=== PATIENT | female | born 1985 | race African-American/Black ===

== ENCOUNTER 2016-11-06 19:28 | Emergency (ER) | payer MEDICAID, OTHER ==
[~2016-11-06] VITALS: Ht 175.3 cm; Wt 99.0 kg
[~2016-11-06 19:28] MED LIST: CEPH500 PO; CLIN150 PO
[2016-11-06 19:30] VITALS: BP 173/79; PULSE 100; RESP 18; TEMP 97.9; O2SAT 97
--- NOTE | 2016-11-06 21:55 | PD ---
HPI Chief Complaint congestion Date Seen: Nov 06, 2016 Time Seen: 21:00 Travel History International Travel<30 Days: No Contact w/Intl Traveler<30Days: No Known Affected Area: No History of Present Illness HPI 31 y/o at 27 weeks who c/o congestion and KUMARI for 2 weeks which felt worse tonight. She has not improved with tylenol cold. Para: 2 : 3 History Past Medical History Medical History: Denies Significant Hx Obstetric History Obstetric History 2 prior cs 31 week twins G1 Past Surgical History Narrative Surgical 2 cs Family History Family History: Negative Social History Alcohol Use: No Tobacco Use: No Substance Abuse: No Allergies-Medications (Allergen,Severity, Reaction): Coded Allergies: No Known Allergies (Verified , 03/14/16) Home Meds Active Scripts Cephalexin Monohydrate (Keflex 500 mg Cap)500 Mg [id number] Mg PO QID #40 CAP Prov:Yehuda Elliott DO 03/14/16 Clindamycin Hcl (Cleocin)150 Mg Cap2 Tab PO QID #80 CAP Prov:Yehuda Elliott DO 03/14/16 Review of Systems Except as stated in HPI: all other systems reviewed are Neg Physical Exam Narrative GENERAL: Well-nourished, well-developed patient. SKIN: Warm and dry. HEAD: Normocephalic and atraumatic. EYES: No scleral icterus. No injection or drainage. ENT: No nasal drainage noted. Mucous membranes pink. Airway patent. NECK: Supple, trachea midline. No JVD. CARDIOVASCULAR: Regular rate and rhythm without murmurs, gallops, or rubs. RESPIRATORY: Breath sounds equal bilaterally. No accessory muscle use. ABDOMEN/GI: Abdomen soft, non-tender, bowel sounds present, no rebound, no guarding Gravid to [-] weeks size Fundal Height: [-] FHT's: Category: [-1] Baseline: [-] Reactive: [-] Variability: [-] Decels: [-] EXTREMITIES: No cyanosis or edema. BACK: Nontender without obvious deformity. No CVA tenderness. NEUROLOGICAL: Awake and alert. Motor and sensory grossly within normal limits. Five out of 5 muscle strength in all muscle groups. Normal speech. Data Data Vital Signs Reviewed: Yes MDM Medical Record Reviewed: Yes Narrative Course / MDM A:URI at 27 weeks P:Continue symptomatic treatments. Diagnosis Diagnosis: Primary Impression: 27 weeks gestation of Additional Impression: URI (upper respiratory infection) Disposition: 01 DISCHARGE HOME Condition: Good Segundo Ashley MD Nov 06, 2016 21:55
== END 2016-11-06 22:59 | disposition home or self-care (01) ==
LOC: HOBED 19:28
DX: O99.512 Diseases of the respiratory system complicating pregnancy, second trimester (principal); J06.9 Acute upper respiratory infection, unspecified; Z3A.27 27 weeks gestation of pregnancy
CPT/HCPCS: 87804; 99284

== ENCOUNTER 2017-01-27 16:04 | Inpatient (IN) | payer MEDICAID ==
[~2017-01-27] VITALS: Ht 175.3 cm; Wt 149.2 kg
[2017-01-30] VITALS (20 sets, daily range): BP systolic 112–166; BP diastolic 55–73; PULSE 66–102; RESP 18–20; TEMP 97.6–98.9; O2SAT 96–99
[2017-01-30] MEDS ORDERED: CALNTAB (05:41)
[2017-01-30 06:02] LABS: AUTOMATED NEUTROPHIL # 11.3 TH/MM3 (1.8-7.7); BASOPHIL # 0.1 TH/MM3 (0-0.2); BASOPHIL % 0.4 % (0.0-2.0); EOSINOPHIL # 0.1 TH/MM3 (0-0.4); EOSINOPHIL % 0.9 % (0.0-4.0); HEMATOCRIT 35.1 % (35.0-46.0); HEMO FLAGS DIFF FINAL; LYMPH % 19.7 % (9.0-44.0); LYMPHOCYTE # 3.1 TH/MM3 (1.0-4.8); MEAN CELL VOLUME 76.7 FL (80.0-100.0); MEAN CORPUSCULAR HEMOGLOBIN 25.3 PG (27.0-34.0); MONO % 6.5 % (0.0-8.0); NEUT % 72.5 % (16.0-70.0); PLATELET COUNT 255 TH/MM3 (150-450); RED BLOOD COUNT 4.58 MIL/MM3 (4.00-5.30); RED CELL DISTRIBUTION WIDTH 14.6 % (11.6-17.2); WHITE BLOOD COUNT 15.5 TH/MM3 (4.0-11.0)
[2017-01-30] MEDS ORDERED: ceFAZolin 2 GM PREMIX 50 ML IV SCH (06:15)
[2017-01-30] MEDS ORDERED: CITRIC ACID-SODIUM CITRATE LIQ 30 ML UDC PO SCH (06:15)
[2017-01-30] MEDS ORDERED: LACTATED RINGER'S 1000 ML IV ONE (06:15)
[2017-01-30] MEDS ORDERED: LACTATED RINGER'S 1000 ML IV SCH (06:15)
[2017-01-30 06:16] LABS: BACTERIA, URINE RARE /hpf; BLOOD, URINE NEG (NEG); GLUCOSE,URINE NEG (NEG); KETONE, URINE TRACE mg/dL (NEG); MUCUS URINE FEW /lpf (OCC); NITRITE,URINE NEG (NEG); RENAL EPITHELIAL CELLS <1 /hpf; SQUAMOUS EPITHELIAL CELL URINE 9 /hpf (0-5); TRANSITIONAL EPI CELLS, URINE <1 /hpf; URINE COLOR YELLOW (YELLW/STRAW)
[2017-01-30 06:19] LABS: COMMENT (UR) CULTURE INDICATED; CULTURE IF INDICATED CULTURE INDICATED
[2017-01-30] MEDS ORDERED: APREPITANT 40 MG CAP ONE (06:50)
[2017-01-30] MEDS ORDERED: OXYTOCIN 10 UNIT/ML AMP ONE ×2 (06:55→07:04)
--- NOTE | 2017-01-30 07:31 | HHI.HP ---
HPI Chief Complaint here for repeat CS at 39 weeks Date Seen: January 30, 2017 Time Seen: 07:10 Travel History International Travel<30 Days: No Contact w/Intl Traveler<30Days: No Known Affected Area: No History of Present Illness HPI 31 for 3rd repeat CS. All questions answered and good PNC Para: 3 : 4 History Past Medical History Medical History: Denies Significant Hx Obstetric History Obstetric History x1 and CS X2 Past Surgical History Narrative Surgical as above Family History Family History: Negative Social History Alcohol Use: No Tobacco Use: No Substance Abuse: No Allergies-Medications (Allergen,Severity, Reaction): Coded Allergies: No Known Allergies (Verified , 01/30/17) Home Meds Reported Medications Vitamin (Calna)1 Tab Tab 01/30/17 Discontinued Scripts Cephalexin Monohydrate (Keflex 500 mg Cap)500 Mg [id number] Mg PO QID #40 CAP Prov:Yehuda Elliott DO 03/14/16 Clindamycin Hcl (Cleocin)150 Mg Cap2 Tab PO QID #80 CAP Prov:Yehuda Elliott DO 03/14/16 Review of Systems Except as stated in HPI: all other systems reviewed are Neg Physical Exam Vital Signs Date Time Temp Pulse Resp B/P Pulse Ox O2 Delivery O2 Flow Rate FiO2 01/30/17 05:56 94 01/30/17 05:56 98.1 01/30/17 05:56 20 01/30/17 05:56 136/73 01/30/17 05:55 102 01/30/17 05:50 94 01/30/17 05:45 97 Narrative GENERAL: Well-nourished, well-developed patient. SKIN: Warm and dry. HEAD: Normocephalic and atraumatic. EYES: No scleral icterus. No injection or drainage. ENT: No nasal drainage noted. Mucous membranes pink. Airway patent. NECK: Supple, trachea midline. No JVD. CARDIOVASCULAR: Regular rate and rhythm without murmurs, gallops, or rubs. RESPIRATORY: Breath sounds equal bilaterally. No accessory muscle use. BREASTS: Bilateral exam showed no masses , no retractions, no nipple discharge. ABDOMEN/GI: Abdomen soft, non-tender, bowel sounds present, no rebound, no guarding Gravid to [-] weeks size Fundal Height: [-] GENITOURINARY: External Genitalia: intact and normal in appearance BUS glands: [-] Cervix: [-] Dilatation: [-] Effacement: [-] Station: [-] Presentation: [-] Membranes: [intact or ruptured] Uterine Contractions: [-] FHT's: Category: [-] Baseline: [-] Reactive: [-] Variability: [-] Decels: [-] EXTREMITIES: No cyanosis or edema. BACK: Nontender without obvious deformity. No CVA tenderness. NEUROLOGICAL: Awake and alert. Motor and sensory grossly within normal limits. Five out of 5 muscle strength in all muscle groups. Normal speech. Data Data Vital Signs Reviewed: Yes Orders Admit To Inpatient (01/30/17 ) Vital Signs (Adult) .ON ADMISSION (01/30/17 05:48) Activity Oob Ad Antonieta (01/30/17 05:48) Heart (01/30/17 05:48) Urinary Catheter Management TERRI.Q8H (01/30/17 05:48) ^ Preps (01/30/17 05:48) Scd / Anival / Foot Pump TERRI.QSHIFT (01/30/17 05:48) ^ Ultrasound For Locatio (01/30/17 05:48) Diet Npo (01/30/17 Breakfast) Type And Screen (01/30/17 05:48) Complete Blood Count With Diff (01/30/17 05:48) Urinalysis - C+S If Indicated (01/30/17 05:48) Specimen To Be Collected PRN (01/30/17 05:48) Lactated Ringer's 1000 Ml Inj (Lr 1000 M (01/30/17 06:15) Lactated Ringer's 1000 Ml Inj (Lr 1000 M (01/30/17 06:15) Citric Acid-Sodium Citrate Liq (Bicitra (01/30/17 06:15) Cefazolin 2 Gm Premix (Ancef 2 Gm Premix (01/30/17 06:15) Urine Culture (01/30/17 05:30) Aprepitant (Emend) (01/30/17 06:50) Oxytocin Inj (Pitocin Inj) (01/30/17 06:55) Oxytocin Inj (Pitocin Inj) (01/30/17 07:04) Labs Laboratory Tests Test 01/30/17 05:30 White Blood Count 15.5 Red Blood Count 4.58 Hemoglobin 11.6 Hematocrit 35.1 Mean Corpuscular Volume 76.7 Mean Corpuscular Hemoglobin 25.3 Mean Corpuscular Hemoglobin 33.0 Concent Red Cell Distribution Width 14.6 Platelet Count 255 Mean Platelet Volume 7.5 Neutrophils (%) (Auto) 72.5 Lymphocytes (%) (Auto) 19.7 Monocytes (%) (Auto) 6.5 Eosinophils (%) (Auto) 0.9 Basophils (%) (Auto) 0.4 Neutrophils # (Auto) 11.3 Lymphocytes # (Auto) 3.1 Monocytes # (Auto) 1.0 Eosinophils # (Auto) 0.1 Basophils # (Auto) 0.1 CBC Comment DIFF FINAL Differential Comment Urine Color YELLOW Urine Turbidity HAZY Urine pH 6.0 Urine Specific [place] 1.022 Urine Protein TRACE Urine Glucose (UA) NEG Urine Ketones TRACE Urine Occult Blood NEG Urine Nitrite NEG Urine Bilirubin NEG Urine Urobilinogen LESS THAN 2.0 Urine Leukocyte Esterase LARGE Urine RBC 8 Urine WBC 25 Urine Squamous Epithelial 9 Cells Urine Transitional Epithelial <1 Cells Urine Renal Epithelial Cells <1 Urine Bacteria RARE Urine Mucus FEW Microscopic Urinalysis Comment CULTURE INDICATED Blood Type B POSITIVE Antibody Screen NEGATIVE Date/Time Procedure Status Source Growth 01/30/17 05:30 Urine Culture Received Urine Clean Catch Pending Assessment/Plan Problem List: (1) 39 weeks gestation of Assessment and Plan For CS Preston Ojeda MD January 30, 2017 07:31
--- NOTE | 2017-01-30 08:25 | PD.OB.DELI ---
Procedure Note Section Procedure Pre Op Diagnosis: (1) 39 weeks gestation of (2) Delivered by section Post Op Diagnosis: (1) 39 weeks gestation of (2) Delivered by section Performed by Preston Ojeda Procedure: Repeat Low Transverse Sec Indication for delivery: Desired elective repeat Informed consent obtained: For anesthesia, For procedure Confirmed correct: Patient, Procedure, Time-out taken Anesthesia: Spinal Medication prior to procedure: As documented in eMAR Monitoring during procedure: Blood pressure monitoring Urinary catheter: Inserted using sterile technique, To dependent drainage Sterile preparation: Duraprep Position: Supine with wedge to left side Operative Features Skin Incision: Pfannenstiel Uterine Incision: Low transverse w/knife / blunt ext Membranes Ruptured: Artificially Presentation: Occiput anterior Delivery of infant: Uneventful : Male, Single One Minute : 8 Five Minute : 9 Weight: 5# 12 oz Status of infant: Viable Placenta delivered: Intact Medications: Antibiotics Estimated blood loss: 500 Procedure tolerated: Well Maternal Condition: Stable Condition: Stable Preston Ojeda MD January 30, 2017 08:24
[2017-01-30] MEDS ORDERED: oxyCODONE/ACETAMINOPHEN 5 MG/325 MG TAB PO PRN (08:30)
[2017-01-30] MEDS ORDERED: SIMETHICONE 80 MG CHEWABLE TAB PO PRN (08:30)
[2017-01-30] MEDS ORDERED: KETOROLAC TROMETHAMINE 60 MG/2 ML (IM) VIAL IM PRN (08:30)
[2017-01-30] MEDS ORDERED: MORPHINE SULFATE PF 5 MG/10 ML VIAL ONE (08:30)
[2017-01-30] MEDS ORDERED: SODIUM CHLORIDE 0.9% FLUSH 10 ML FLUSH IV FLUSH PRN (08:30)
[2017-01-30] MEDS ORDERED: OXYTOCIN 30 UNITS-500ML PREMIX 500 ML IV ONE (08:30)
[2017-01-30] MEDS: SODIUM CHLORIDE 0.9% FLUSH 10 ML FLUSH IV FLUSH SCH (09:00)
[2017-01-30] MEDS ORDERED: ONDANSETRON HCL 4 MG/2 ML VIAL IV PUSH ONE (09:02)
[2017-01-30] MEDS ORDERED: MORPHINE SULFATE PF 5 MG/10 ML VIAL EPIDURAL ONE (09:02)
[2017-01-30] MEDS ORDERED: DEXAMETHASONE SOD PHOS 4 MG/ML VIAL IV PUSH ONE (09:02)
[2017-01-30] MEDS ORDERED: OXYTOCIN 10 UNIT/ML AMP IV ONE (09:02)
[2017-01-30] MEDS ORDERED: OXYTOCIN 30 UNITS-500ML PREMIX 500 ML ONE (09:08)
[2017-01-30] MEDS ORDERED: SODIUM CHLORIDE 0.9% FLUSH 5 ML FLUSH ONE (09:12)
[2017-01-30] MEDS ORDERED: EPIDURAL-NALOXONE HCL 0.4 MG/ML AMP IV PRN (10:15)
[2017-01-30] MEDS ORDERED: EPIDURAL-DIPHENHYDRAMINE HCL 50 MG/ML VIAL IV PUSH PRN (10:15)
[2017-01-30] MEDS ORDERED: EPIDURAL-DO NOT ADMINISTER ANTICOAGULANTS PRN (10:15)
[2017-01-30] MEDS ORDERED: EPIDURAL-DIPHENHYDRAMINE HCL 50 MG CAP PO PRN (10:15)
[2017-01-30] MEDS ORDERED: EPIDURAL-NO SYSTEMIC NARCOTICS PRN (10:15)
[2017-01-30] MEDS ORDERED: LACTATED RINGER'S 1000 ML INJ 1,000 ML IV SCH (13:22)
[2017-01-30] MEDS ORDERED: OXYTOCIN 30 UNITS-500ML PREMIX 500 ML IV PRN (18:30)
[2017-01-31 00:10] VITALS: BP 112/69; PULSE 73; TEMP 98.2
[2017-01-31] MEDS: oxyCODONE/ACETAMINOPHEN 5 MG/325 MG TAB PO PRN ×2 (00:25→11:58)
[2017-01-31] MEDS: IBUPROFEN 600 MG TAB PO PRN ×2 (00:25→11:57)
[2017-01-31 01:10] VITALS: RESP 18
[2017-01-31 03:10] VITALS: RESP 16
[2017-01-31 04:00] VITALS: BP 114/69; PULSE 75; RESP 18; TEMP 97.9
[2017-01-31 05:00] VITALS: RESP 16
[2017-01-31 06:01] LABS: AUTOMATED NEUTROPHIL # 10.5 TH/MM3 (1.8-7.7); BASOPHIL % 0.3 % (0.0-2.0); EOSINOPHIL # 0.1 TH/MM3 (0-0.4); HEMATOCRIT 31.4 % (35.0-46.0); HEMO FLAGS DIFF FINAL; LYMPH % 20.8 % (9.0-44.0); MEAN CELL VOLUME 78.2 FL (80.0-100.0); MEAN CORPUSCULAR HEMOGLOBIN 25.2 PG (27.0-34.0); MEAN CORPUSCULAR HGB CONC 32.2 % (32.0-36.0); MONO % 6.1 % (0.0-8.0); NEUT % 71.8 % (16.0-70.0); PLATELET COUNT 216 TH/MM3 (150-450); RED BLOOD COUNT 4.01 MIL/MM3 (4.00-5.30); RED CELL DISTRIBUTION WIDTH 15.1 % (11.6-17.2); WHITE BLOOD COUNT 14.6 TH/MM3 (4.0-11.0)
--- NOTE | 2017-01-31 09:03 | MP ---
cc: RAY OJEDA DATE OF PROCEDURE January 30, 2017 PREOPERATIVE DIAGNOSIS Repeat section, third time. POSTOPERATIVE DIAGNOSIS Repeat section, third time, [address] Ray Ojeda ESTIMATED BLOOD LOSS 500 cc. ANESTHESIA Spinal. COMPLICATIONS None. FINDINGS Normal anatomy with moderate scar tissue. in a vertex presentation. Live male , Apgars of 8 and 9. PROCEDURE IN DETAIL After informed consent, the patient was taken to the operating room where she placed under spinal anesthesia, placed in supine position, left lateral tilt. The abdomen, perineum and vagina were prepped and draped in normal sterile fashion. A Montemayor catheter was then placed to gravity. After adequate anesthesia was assured and time-out was taken, a Pfannenstiel skin incision was carried sharply through the skin to the fascia. The fascia was nicked in the midline. The incision was extended laterally using Galindo scissors. The rectus muscles were dissected off the fascia with sharp dissection secondary to scar tissue. The rectus muscle was in the midline and extended laterally using blunt traction. The uterus was noted to be midline. The lower uterine segment was thin and the bladder was already down. A low-transverse uterine incision was then made, carried sharply into the uterine cavity. Clear fluid was noted. The incision was extended laterally using blunt traction. A hand was placed in the uterus. Fundal pressure was given and the 's head was guided through the incision, the infant delivered without difficulty. Nose and mouth were suctioned of fluid. The infant began to cry immediately. We waited 45 seconds to clamp the cord. We clamped the cord without difficulty. The cord was clamped and cut and the was handed to the pediatrics in attendance. Cord blood was collected. Placenta was delivered manually. The uterus was exteriorized, wiped free from all remaining products of conception. The uterine incision was then closed with running locking stitch of chromic suture. Good hemostasis was achieved. The uterus was placed back in the abdomen, noted to be hemostatic. The peritoneum was closed with Vicryl suture. The fascia closed with Vicryl suture. The skin was closed with subcuticular stitch. Each layer was noted to be hemostatic prior to closure. The patient tolerated the procedure well. She was taken to recovery room in stable condition. MD YEHUDA Albrecht/DAYNE /8:28 AM /8:51 AM
--- NOTE | 2017-01-31 09:17 | HHI.OB ---
Subjective Post Day: 1 Remarks doing well Objective Vitals/I&O Vital Signs Date Time Temp Pulse Resp B/P Pulse Ox O2 Delivery O2 Flow Rate FiO2 01/31/17 05:00 16 01/31/17 04:00 97.9 75 18 114/69 01/31/17 03:10 16 01/31/17 01:10 18 01/31/17 00:10 98.2 73 112/69 01/30/17 23:54 18 01/30/17 22:10 18 01/30/17 20:00 97.6 73 18 113/69 01/30/17 19:42 98.5 20 99 01/30/17 19:42 89 127/61 01/30/17 09:51 18 01/30/17 09:51 74 115/55 01/30/17 09:51 20 96 01/30/17 09:30 115/58 01/30/17 09:30 19 98 01/30/17 09:30 68 01/30/17 09:30 97.8 Objective Remarks GENERAL: Well-nourished, well-developed patient. ABDOMEN/GI: Abdomen soft, non-tender. Fundus: Firm, non-tender at umbilicus. GENITOURINARY: Light to moderate bleeding. EXTREMITIES: No cyanosis or edema, non-tender, without signs of DVT. Medications and IVs Current Medications Medications (Trade) Dose Ordered Sig/Byron Route Start Time Stop Time Status Last Admin Lactated Ringer's 1,000 ml @ 150 mls/hr Q6H40M IV 01/30/17 06:15 (Lr 1000 ml Inj) 1,000 ml @ 100 mls/hr Q10H IV 01/30/17 13:22 01/31/17 09:21 (NS Flush) 2 ml BID IV FLUSH 01/30/17 09:00 (NS Flush) 2 ml UNSCH PRN IV FLUSH 01/30/17 08:30 (Mylicon Chew) 80 mg QID PRN PO 01/30/17 08:30 (Motrin) 600 mg Q6H PRN PO 01/30/17 08:30 01/31/17 00:25 (Percocet 5-325 Mg) 1 tab Q4H PRN PO 01/30/17 08:30 01/31/17 00:25 (Percocet 5-325 Mg) 2 tab Q4H PRN PO 01/30/17 08:30 (M-M-R Ii Inj) 0.5 ml ONCE ONCE SQ 01/31/17 16:00 01/31/17 16:01 (Boostrix Inj) 0.5 ml ONCE ONCE IM 01/31/17 16:00 01/31/17 16:01 Miscellaneous Information NO SYSTEMIC NARCOTICS TO BE GIVEN FO... UNSCH PRN .XX 01/30/17 10:15 01/31/17 10:14 (Narcan Inj) 0.4 mg UNSCH PRN IV 01/30/17 10:15 01/31/17 10:14 (Benadryl Inj) 25 mg Q6H PRN IV PUSH 01/30/17 10:15 01/31/17 10:14 (Benadryl) 50 mg Q6H PRN PO 01/30/17 10:15 01/31/17 10:14 Miscellaneous Information ALL NURSING DEPARTMENTS UNSCH PRN .XX 01/30/17 10:15 01/31/17 10:14 Assessment/Plan Problem List: (1) 39 weeks gestation of Assessment and Plan post op day 1 Preston Ojeda MD January 31, 2017 09:17
[2017-01-31] MEDS ORDERED: MEASLES, MUMPS, RUBELLA VACCINE 0.5 ML VIAL SQ ONE (16:00)
[2017-01-31] MEDS ORDERED: DIPHTH/TETANUS/ACEL PERTUSSIS (BOOSTER) 0.5 ML VIAL/PFS IM ONE (16:00)
[2017-01-31] MEDS: SODIUM CHLORIDE 0.9% FLUSH 10 ML FLUSH IV FLUSH SCH (21:00)
[2017-01-31 21:30] VITALS: BP 129/81; PULSE 82; RESP 18; TEMP 98.5
[2017-01-31] MEDS ORDERED: DOCUSATE SODIUM 50 MG/SENNA 8.6 MG TAB PO PRN (22:00)
[2017-02-01] MEDS: IBUPROFEN 600 MG TAB PO PRN ×2 (01:52→14:30)
[2017-02-01] MEDS: oxyCODONE/ACETAMINOPHEN 5 MG/325 MG TAB PO PRN ×2 (01:52→14:30)
--- NOTE | 2017-02-01 07:43 | HHI.OB ---
Subjective Post Day: 2 Remarks doing well dc home Objective Vitals/I&O Vital Signs Date Time Temp Pulse Resp B/P Pulse Ox O2 Delivery O2 Flow Rate FiO2 01/31/17 21:30 82 18 129/81 01/31/17 21:30 98.5 Objective Remarks GENERAL: Well-nourished, well-developed patient. ABDOMEN/GI: Abdomen soft, non-tender. Fundus: Firm, non-tender at umbilicus. GENITOURINARY: Light to moderate bleeding. EXTREMITIES: No cyanosis or edema, non-tender, without signs of DVT. Medications and IVs Current Medications Medications (Trade) Dose Ordered Sig/Byron Route Start Time Stop Time Status Last Admin (Lr 1000 ml Inj) 1,000 ml @ 150 mls/hr Q6H40M IV 01/30/17 06:15 (NS Flush) 2 ml BID IV FLUSH 01/30/17 09:00 (NS Flush) 2 ml UNSCH PRN IV FLUSH 01/30/17 08:30 (Mylicon Chew) 80 mg QID PRN PO 01/30/17 08:30 (Motrin) 600 mg Q6H PRN PO 01/30/17 08:30 02/01/17 01:52 (Percocet 5-325 Mg) 1 tab Q4H PRN PO 01/30/17 08:30 02/01/17 01:52 (Percocet 5-325 Mg) 2 tab Q4H PRN PO 01/30/17 08:30 (Shari-Colace) 2 tab Q12H PRN PO 01/31/17 22:00 01/31/17 22:11 Assessment/Plan Problem List: (1) 39 weeks gestation of Assessment and Plan post op day 2 DC home Preston Ojeda MD February 01, 2017 07:43
[2017-02-01] MEDS ORDERED: OXYC1TAB63 PO (07:44)
--- NOTE | 2017-02-01 07:45 | HHI.DCPOC ---
Discharge Care Plan Diagnosis: (1) 39 weeks gestation of (2) Delivered by section Report Symptoms to Your Doctor -Temperate above 100.5 degrees -Redness, of incision or excessive or foul smelling drainage -Unusual pain or calf pain -Increased vaginal bleeding -Painful or difficulty urinating -Feelings of extreme sadness or anxiety after 2 weeks Goals to Promote Your Health * To prevent worsening of your condition and complications * To maintain your health at the optimal level Directions to Meet Your Goals Take your medications as prescribed Follow your dietary instruction Follow activity as directed Ensure plenty of rest for recovery Drink fluids for hydration Keep your appointments as scheduled Take your immunizations and boosters as scheduled If your symptoms worsen call your PCP, if no PCP go to Urgent Care Center or Emergency Room Smoking is Dangerous to Your Health. Avoid second hand smoke Call the 24-hour crisis hotline for domestic abuse at Preston Ojeda MD February 01, 2017 07:45
--- NOTE | 2017-02-01 07:47 | HHI.DS ---
Admission Date January 30, 2017 at 05:18 Discharge Date: February 01, 2017 Admitting Diagnosis Diagnosis: (1) Delivered by section Diagnosis: Principal : Repeat : Male, Single Brief History 31 for 3rd repeat CS. All questions answered and good [facility] Hospital Course Doing well 48 hours after CS. She will call for problems Pt Condition on Discharge: Good Discharge Disposition: Discharge Home Discharge Instructions Diet Instructions: As Tolerated, No Restrictions Activities You Can Perform: Pelvic Rest Activities to Avoid: Driving for 24 hrs Follow up Referrals: [employer] [facility] - 2 Weeks @ [facility] with Preston Ojeda MD New Medications: Oxycodone-Acetaminophen (Oxycodone-Acetaminophen) 5-325 mg Tab 2 TAB PO Q4H PRN PAIN SCALE 6 TO 10 #30 TAB Continued Medications: Vitamin (Calna) 1 Tab Tab Preston Ojeda MD February 01, 2017 07:47
== END 2017-02-01 18:24 | disposition home or self-care (01) | DRG 766 ==
LOC: H2EB 01-30 05:18 → H1EA 01-30 10:12
PROVIDERS: ADMIT Obstetrics & Gynecology; ATTEND Obstetrics & Gynecology
PROC: 10D00Z1 Extraction of Products of Conception, Low, Open Approach (ICD-10-PCS; principal; 2017-01-30)
DX: O34.211 Maternal care for low transverse scar from previous cesarean delivery (principal); Z37.0 Single live birth; Z3A.39 39 weeks gestation of pregnancy
CPT/HCPCS: 59025; 81001; 85025; 86850; 86900; 86901; 87086; 90715; J0690; J1100; J2274; J2405; J2590; J7120; J8501

== ENCOUNTER 2017-10-04 13:29 | Emergency (ER) | payer MEDICAID ==
[~2017-10-04] VITALS: Ht 175.3 cm; Wt 141.4 kg
[~2017-10-04 13:29] MED LIST changes: +CALNTAB; -CEPH500 PO; -CLIN150 PO; +OXYC1TAB63 PO
[2017-10-04 13:30] VITALS: BP 144/81; PULSE 103; RESP 20; TEMP 99.1; O2SAT 97
[2017-10-04] MEDS ORDERED: CYCLOBENZAPRINE HCL 10 MG TAB PO ONE (14:00)
[2017-10-04] MEDS ORDERED: IBUPROFEN 600 MG TAB PO ONE (14:00)
--- NOTE | 2017-10-04 14:21 | PD ---
HPI Chief Complaint: ENT Complaint Time Seen by Provider: 13:53 Travel History International Travel<30 days: No Contact w/Intl Traveler<30days: No Traveled to known affect area: No History of Present Illness HPI 32-year-old female presents to the emergency room for evaluation of sore throat , fever, and body aches for the past week. States it started off as a mild sore throat but symptoms have been worsening every day. She reports associated fever with a maximum temperature of 102. Denies cough or congestion. She has been drinking warm tea but not taking any uone-doe-acgsvht medications. Patient denies chronic medical conditions or daily medications. PFSH Past Medical History Anxiety: Yes Diminished Hearing: No Genitourinary: Yes (UTI'S) Immunizations Current: Yes Tetanus Vaccination: < 5 Years Influenza Vaccination: No ?: Not : 3 Para: 2 Past Surgical History Section: Yes (2X) Gynecologic Surgery: Yes (2X ) Social History Alcohol Use: No Tobacco Use: No Substance Use: No Allergies-Medications (Allergen,Severity, Reaction): Coded Allergies: No Known Allergies (Verified Adverse Reaction, Unknown, 10/04/17) Reported Meds & Prescriptions Reported Meds & Active Scripts Active Magic Mouthwash Pediatric/Adult Liq (Lidocaine/Diphenhydr/Alum/Mg/Simeth) 60 Ml Susp 5 Ml SWISH-SWAL ACHS Each 5mL contains: Diphenydramine 4.5mg, Viscous Lidocaine 2% 10mg, Maalox Advanced Regular Strength 2.7ml Review of Systems Except as stated in HPI: all other systems reviewed are Neg Physical Exam Narrative GENERAL: Well-nourished, morbidly obese female in no acute distress. Afebrile. Ambulatory. SKIN: Focused skin assessment warm/dry. HEAD: Normocephalic. EYES: No scleral icterus. No injection or drainage. NECK: Supple, trachea midline. No JVD or lymphadenopathy. ENT: Mucosa pink and moist. Moderate erythema without edema or exudates. No uvular edema. No uvular, palatal, or tonsillar deviation. Airway patent. Nasal turbinates appear normal without nasal blood, purulent drainage or septal hematoma. EARS: Bilateral pinnae and external canals appear within normal limits. Bilateral tympanic membranes without erythema, dullness or perforation. CARDIOVASCULAR: Regular rate and rhythm without murmurs, gallops, or rubs. RESPIRATORY: Breath sounds equal bilaterally. No accessory muscle use. No crackles, rales, wheezes, or rhonchi. Data Data Last Documented VS Vital Signs Date Time Temp Pulse Resp B/P (MAP) Pulse Ox O2 Delivery O2 Flow Rate FiO2 10/04/17 13:30 99.1 103 20 144/81 (102) 97 Room Air Orders Orders Group A Rapid Strep Screen (10/04/17 13:45) Strep Culture (Group A) (10/04/17 13:50) Ed Discharge Order (10/04/17 14:30) MDM Medical Decision Making Medical Screen Exam Complete: Yes Emergency Medical Condition: Yes Medical Record Reviewed: Yes Differential Diagnosis Strep, mono, viral pharyngitis, upper respiratory infection, flu Narrative Course 32-year-old female presents to the emergency room for evaluation of sore throat , fever, body aches for the past week. States symptoms seem to be worsening. Highest temperature at home was 102. Patient is afebrile and well-appearing in the emergency room. Vital signs stable. Resting comfortably. There is moderate erythematous pharynx without edema or exudates. Lungs sounds clear and equal bilaterally. Rapid strep is negative. This is viral pharyngitis. Patient discharged with Magic mouthwash and told to follow-up with her primary care physician or return for worsening symptoms. She understands and agrees to plan. Diagnosis Primary Impression: Acute viral pharyngitis Referrals: Primary Care Physician Additional Instructions: Use Magic mouthwash as directed, as needed for pain. Take ibuprofen with food as directed, as needed for pain. Follow-up with a primary care physician. Return to the emergency room for worsening symptoms. Med/Other Pt SpecificInfo: Prescription(s) given Scripts Mzadqsekxuslowx-Jbcerwwoe-Ejg-Alum-Simeth Liq (Magic Mouthwash Pediatric/Adult Liq) 60 Ml Susp 5 ML SWISH-SWAL ACHS for Mouth sores, #60 ML 0 Refills Each 5mL contains: Diphenydramine 4.5mg, Viscous Lidocaine 2% 10mg, Maalox Advanced Regular Strength 2.7ml Prov: Segundo Bedoya MD 10/04/17 Disposition: 01 DISCHARGE HOME Condition: Stable Rosa Maria Clark Oct 04, 2017 14:21
[2017-10-04] MEDS ORDERED: MAGICPED SWISH-SWAL (14:30)
== END 2017-10-04 14:46 | disposition home or self-care (01) ==
LOC: NEPK 13:29
DX: J02.8 Acute pharyngitis due to other specified organisms (principal); F41.9 Anxiety disorder, unspecified
CPT/HCPCS: 87081; 87880; 99283